=== PATIENT | female | born 1970 | race Hispanic/Latino ===

== ENCOUNTER 2018-09-04 17:51 | Inpatient (IN) | payer OTHER, BC ==
[~2018-09-04] VITALS: Ht 170.2 cm; Wt 101.8 kg
[2018-09-04 19:26] LABS: BASOPHILS % (AUTO) 1.3 % (0.0-5.0); EOSINOPHILS % (AUTO) 2.9 % (0.0-8.0); HEMATOCRIT 36.9 % (36-48); LYMPHOCYTES % (AUTO) 17.8 % (21.0-51.0); MEAN CORPUSCULAR HEMOGLOBIN 27.3 pg (27.0-33.0); MEAN CORPUSCULAR HGB CONC 33.8 g/dL (32.0-36.0); MEAN CORPUSCULAR VOLUME 80.9 fL (79-99); MONOCYTES % (AUTO) 5.6 % (3.0-13.0); NEUTROPHILS % (AUTO) 72.4 % (40.0-77.0); PLATELET COUNT (AUTO) 326 K/uL (130-400); RED BLOOD CELL COUNT(AUTO) 4.56 MIL/uL (4.00-5.50); RED CELL DISTRIBUTION WIDTH 13.5 % (11.0-15.5); WHITE BLOOD COUNT (AUTO) 14.2 K/uL (4.8-10.8)
[2018-09-04 19:28] LABS: APPEARANCE,URINE Clear (CLEAR); BILIRUBIN,URINE Negative (NEGATIVE); COLOR,URINE Yellow (YELLOW); GLUCOSE, URINE (UA) >=1000 mg/dL (NEGATIVE); KETONES,URINE Negative (NEGATIVE); LEUKOCYTE ESTERASE ,URINE Trace (NEGATIVE); NITRATE,URINE Negative (NEGATIVE); OCCULT BLOOD,URINE Trace (NEGATIVE); PH,URINE 5.5 (5.0-8.0); PROTEIN,URINE POS 2+ mg/dL (NEGATIVE); UROBILINOGEN,URINE 0.2 mg/dL (0.2-1.0)
[2018-09-04 19:30] LABS: HCG,QUAL RESULT NEGATIVE (NEGATIVE)
[2018-09-04 19:36] LABS: CREATININE 2.4 mg/dL (0.5-1.5); POTASSIUM 3.7 mmol/L (3.5-5.1)
[2018-09-04 19:38] LABS: INR 0.96 (0.85-1.15); PARTIAL THROMBOPLASTIN TIME 32.2 SEC (26.3-35.5); PROTHROMBIN TIME 10.1 SEC (9.6-11.6)
[2018-09-04] MEDS ORDERED: ENOXAPARIN SODIUM 40 MG/0.4 ML SYRINGE SQ ONE (19:38)
[2018-09-04] MEDS ORDERED: ENOXAPARIN SODIUM 60 MG/0.6 ML SQ ONE (19:38)
[2018-09-04 19:41] LABS: ALBUMIN 3.2 g/dL (3.5-5.0); BILIRUBIN,TOTAL 0.3 mg/dL (0.2-1.0); TOTAL PROTEIN, SERUM 8.2 g/dL (6.0-8.3)
[2018-09-04 19:54] LABS: RBC,URINE None Seen /HPF (0-1)
[2018-09-04 19:56] LABS: BACTERIA,URINE Rare /HPF (None Seen); SQUAMOUS EPITHELIAL CELL,UR Rare /HPF (0-2)
[2018-09-04] MEDS ORDERED: ACETAMINOPHEN 325 MG TAB PO PRN ×2 (22:00)
[2018-09-04] MEDS ORDERED: ONDANSETRON HCL 4 MG/2 ML VIAL IV PRN (22:00)
[2018-09-04] MEDS ORDERED: MORPHINE SULFATE 2 MG/ML 1ML SYG IV PRN (22:00)
[2018-09-04] MEDS ORDERED: HYDRALAZINE HCL 20 MG/ML VIAL IV PRN (22:00)
[2018-09-04] MEDS ORDERED: CEFTRIAXONE SODIUM 1 GM ONE (22:36)
[2018-09-04 23:10] VITALS: BP 146/78
[2018-09-04] MEDS ORDERED: SAXA5TAB PO (23:37)
[2018-09-04] MEDS ORDERED: INSLAN SQ (23:37)
[2018-09-04] MEDS ORDERED: ATEN50TA PO (23:37)
[2018-09-05] MEDS ORDERED: DEXTROSE 50%-WATER 50 ML DISP.SYRIN IV PRN (01:00)
[2018-09-05] MEDS ORDERED: GLUCAGON 1MG KIT 1 MG ML IM PRN (01:00)
[2018-09-05 03:50] VITALS: BP 128/87
[2018-09-05] MEDS ORDERED: INSULIN HUMULIN R 100 UNIT/ML 3ML SQ SCH (07:30)
[2018-09-05 07:42] VITALS: BP 134/78
[2018-09-05] MEDS ORDERED: WARFARIN SODIUM 7.5 MG TAB PO SCH (08:00)
[2018-09-05] MEDS ORDERED: ENOXAPARIN SODIUM 40 MG/0.4 ML SYRINGE SQ SCH (09:00)
[2018-09-05] MEDS: ENOXAPARIN SODIUM 100 MG/1 ML SQ SCH ×2 (09:22→21:38)
[2018-09-05] MEDS: FAMOTIDINE/PF 20 MG/2 ML VIAL IV SCH (09:22)
[2018-09-05] MEDS: METOPROLOL TARTRATE 25 MG TAB PO SCH ×2 (09:23→21:31)
--- NOTE | 2018-09-05 11:00 | NUR ---
DR. COTTER STATED OK FOR PT TO GET UP AND SHOWER , BUT MAINLY BED REST
[2018-09-05] MEDS ORDERED: INSULIN LISPRO 100 UNIT/ML 3ML SQ SCH ×2 (11:30)
[2018-09-05 11:57] VITALS: BP 141/83
--- NOTE | 2018-09-05 12:32 | NUR ---
SPOKE WITH JUSTIN Miner, FEED MANAGEMENT ADVISOR AWARE OF CONSULT
[2018-09-05] MEDS ORDERED: INSULIN GLARGINE 100 UNITS/ML 10 ML VIAL SQ SCH ×2 (12:45→21:00)
--- NOTE | 2018-09-05 15:58 | NUR ---
DC PLAN VISITED WITH PATIENT. PATIENT LIVES WITH SPOUSE. INDEPENDENT ABLE TO PERFORM ADL'S. PATIENT HAS NO SERVICES. USES CRUTCHES. FEELS SAFE TO RETURN HOME. Addendum: 09/05/18 at 1559 by HI LOU RN CM Amended: Links added.
[2018-09-05 16:00] VITALS: BP 125/75
[2018-09-05] MEDS: WARFARIN SODIUM 5 MG TAB PO SCH (17:00)
[2018-09-05] MEDS: MORPHINE SULFATE 4 MG/1ML SYG IV PRN (18:30)
[2018-09-05 20:00] VITALS: BP 151/93
[2018-09-05] MEDS: CEFTRIAXONE SODIUM 1 GM IVP SCH (21:32)
[2018-09-05] MEDS: ATENOLOL 50 MG TABLET PO SCH (21:32)
[2018-09-05] MEDS: INSULIN GLARGINE 100 UNITS/ML 10 ML VIAL SQ SCH (22:29)
[2018-09-06] VITALS: BP 130/79
[2018-09-06 04:00] VITALS: BP 144/87
[2018-09-06 04:06] LABS: HEMATOCRIT 34.9 % (36-48); MEAN CORPUSCULAR HEMOGLOBIN 27.4 pg (27.0-33.0); MEAN CORPUSCULAR HGB CONC 33.5 g/dL (32.0-36.0); MEAN CORPUSCULAR VOLUME 81.9 fL (79-99); PLATELET COUNT (AUTO) 313 K/uL (130-400); RED BLOOD CELL COUNT(AUTO) 4.26 MIL/uL (4.00-5.50); RED CELL DISTRIBUTION WIDTH 13.7 % (11.0-15.5); WHITE BLOOD COUNT (AUTO) 9.6 K/uL (4.8-10.8)
[2018-09-06 04:13] LABS: HEMOGLOBIN A1C 12.3 % (4.0-6.0)
[2018-09-06 04:19] LABS: INR 1.1 (0.85-1.15); PARTIAL THROMBOPLASTIN TIME 41.4 SEC (26.3-35.5); PROTHROMBIN TIME 11.5 SEC (9.6-11.6)
[2018-09-06 04:23] LABS: B-TYPE NATRIURETIC PEPTIDE 19 pg/mL (0-100)
[2018-09-06] MEDS: INSULIN GLARGINE 100 UNITS/ML 10 ML VIAL SQ SCH ×3 (07:15→21:00)
[2018-09-06 08:00] VITALS: BP 136/77
[2018-09-06] MEDS: METOPROLOL TARTRATE 25 MG TAB PO SCH ×2 (09:05→19:51)
[2018-09-06] MEDS: FAMOTIDINE/PF 20 MG/2 ML VIAL IV SCH (09:05)
[2018-09-06] MEDS: ENOXAPARIN SODIUM 100 MG/1 ML SQ SCH ×2 (09:06→22:59)
[2018-09-06 11:31] VITALS: BP 141/78
--- NOTE | 2018-09-06 15:09 | NUR ---
COUMADIN DIET EDUCATION: Pt new to warfarin. Diet education provided by [facility]. Printed materials provided and reviewed on Warfarin and Vitamin K diet. A list of Vit K content food list provided. Pt with multiple questions all questions answered by [facility]. Addendum: 09/06/18 at [address] RD Amended: Links added.
--- NOTE | 2018-09-06 15:11 | NUR ---
DIABETES DIET EDUCATION: Pt with A1C of 12.3 diabetes diet education provided by [facility]. Printed materials provided and reviewed on Type II DM, portion control, carbohydrate counting, and nutrition label reading tips . Pt with no nutritional questions states she has been a diabetic for many years, has attended nutrition classes and knows her blood sugars have not been able to control d/t changes in medications by her MD. Addendum: 09/06/18 at [address] RD Amended: Links added.
--- NOTE | 2018-09-06 15:18 | NUR ---
Nutrition intervention: Nutrition notification for new to coumadin- diet education provided by [facility] Pt with elevated A1C 12.3, DM diet education provided by [facility]. Pt with elevated renal lab values, recommend diet modification to renal non dialysis. Pt reports allergies to pineapple, rice, corn and avocado when eaten in combination. Menu today had corn, pt did eat it. Pt states she knows how she can eat all meals. States allergies are not life threatening. Recommendations: Diet modification to renal non dialysis. Consult RD as nutrition concerns arise. Addendum: 09/06/18 at [address] RD Amended: Links added.
[2018-09-06] MEDS: WARFARIN SODIUM 5 MG TAB PO SCH (15:52)
[2018-09-06 16:00] VITALS: BP 150/77
[2018-09-06] MEDS: INSULIN HUMULIN R 100 UNIT/ML 3ML SQ SCH ×2 (16:55→20:48)
[2018-09-06] MEDS: CEFTRIAXONE SODIUM 1 GM IVP SCH (19:52)
[2018-09-06] MEDS: ATENOLOL 50 MG TABLET PO SCH (19:52)
[2018-09-06 20:00] VITALS: BP 144/85
[2018-09-06] MEDS: MORPHINE SULFATE 4 MG/1ML SYG IV PRN (23:03)
[2018-09-07] VITALS: BP 132/77
[2018-09-07 04:00] VITALS: BP 128/73
[2018-09-07] MEDS: INSULIN HUMULIN R 100 UNIT/ML 3ML SQ SCH ×2 (06:05→11:43)
[2018-09-07 06:27] LABS: INR 1.69 (0.85-1.15); PARTIAL THROMBOPLASTIN TIME 49.1 SEC (26.3-35.5); PROTHROMBIN TIME 17.6 SEC (9.6-11.6)
[2018-09-07] MEDS: INSULIN GLARGINE 100 UNITS/ML 10 ML VIAL SQ SCH (06:36)
[2018-09-07 08:00] VITALS: BP 126/76
[2018-09-07] MEDS: FAMOTIDINE/PF 20 MG/2 ML VIAL IV SCH (09:27)
[2018-09-07] MEDS: METOPROLOL TARTRATE 25 MG TAB PO SCH (09:27)
[2018-09-07] MEDS: ENOXAPARIN SODIUM 100 MG/1 ML SQ SCH (09:28)
--- NOTE | 2018-09-07 11:21 | NUR ---
ELIQUIS ALEENA spoke to pt regarding new prescription for Eliquis. CM obtained consent to send new script to [facility] pharmacy for insurance verification. ALEENA then faxed script. Spoke to Lina with [facility] pharmacy [place] and states medication covered with copay of $10. ALEENA then updated pt with above and states she can pay for script. CM updated nursing. Pt now pending d/c orders from .
[2018-09-07] MEDS ORDERED: APIXABAN 5 MG TABLET PO SCH (11:45)
[2018-09-07 12:00] VITALS: BP 149/75
--- NOTE | 2018-09-07 13:30 | NUR ---
INSTRUCTIONS DISCHARGE INSTRUCTIONS GIVEN TO PATIENT AND SPOUSE USING TEACH BACK. F/U APPOINTMENT WITH PMD WILL BE MADE BY PATIENT ON NEXT REGULAR BUSINESS DAY D/T THIS BEING SATURDAY. NO QUESTIONS OR CONCERNS VOICED. IV HAS BEEN REMOVED WITH TIP INTACT. DIRECT PRESSURE WAS APPLIED UNTIL BLEEDING WAS CONTROLLED THEN SITE WAS COVERED WITH GAUZE AND SECURED WITH A BAND-AID. NEW PRESCRIPTION WAS CALLED IN TO PATIENT'S PREFERRED PHARMACY.
[2018-09-07] MEDS ORDERED: INSULIN GLARGINE 100 UNITS/ML 10 ML VIAL SQ SCH (21:00)
== END 2018-09-07 13:50 | disposition home or self-care (01) | DRG 300 ==
LOC: EDH 17:51 → EDHIP 21:00 → 4CH 22:45
PROVIDERS: ADMIT Internal Medicine; ATTEND Internal Medicine
DX: I82.402 Acute embolism and thrombosis of unspecified deep veins of left lower extremity (principal); Q61.3 Polycystic kidney, unspecified; N39.0 Urinary tract infection, site not specified; N18.4 Chronic kidney disease, stage 4 (severe); I12.9 Hypertensive chronic kidney disease with stage 1 through stage 4 chronic kidney disease, or unspecified chronic kidney disease; E11.65 Type 2 diabetes mellitus with hyperglycemia; E66.01 Morbid (severe) obesity due to excess calories; Z79.4 Long term (current) use of insulin; Z68.38 Body mass index [BMI] 38.0-38.9, adult; Z90.49 Acquired absence of other specified parts of digestive tract; Z88.8 Allergy status to other drugs, medicaments and biological substances
CPT/HCPCS: 36415; 71045; 73590; 78580; 80053; 81001; 81025; 82948; 83036; 83880; 85025; 85027; 85378; 85610; 85730; 93005; 93971; A9540; G0378; J0696; J1650; J1815; J2270; J3490

== ENCOUNTER → 2023-04-18 | Outpatient (CLI) | payer BC ==
[~2023-04-18] VITALS: Ht 168.9 cm; Wt 93.1 kg
[~2023-04-18] MED LIST: ATEN50TA PO; CALC0.253 PO; FERR210T PO; INSLAN SQ; INSU100I66 SQ; LOSA50TA64 PO; SODI650T PO
[2023-04-18 14:48] VITALS: BP 176/98; PULSE 67; RESP 18
[2023-04-18 14:50] LABS: BASOPHILS # (AUTO) 0.08 K/uL (0.00-0.20); BASOPHILS % (AUTO) 0.5 % (0.0-5.0); HEMATOCRIT 27.3 % (36-48); IMMATURE GRANULOCYTE ABSOLUTE 0.07 K/uL (0-1); LYMPHOCYTES # (AUTO) 1.5 K/uL (1.0-4.8); LYMPHOCYTES % (AUTO) 9.9 % (21.0-51.0); MEAN CORPUSCULAR HEMOGLOBIN 28.6 pg (27.0-33.0); MEAN CORPUSCULAR HGB CONC 32.6 g/dL (32.0-36.0); MEAN CORPUSCULAR VOLUME 87.8 fL (79-99); MONOCYTES # (AUTO) 0.9 K/uL (0.1-1.0); MONOCYTES % (AUTO) 6.1 % (3.0-13.0); NEUTROPHILS # (AUTO) 12.3 K/uL (1.8-7.7); PLATELET COUNT (AUTO) 315 K/uL (130-400); RED BLOOD CELL COUNT(AUTO) 3.11 MIL/uL (4.00-5.50); RED CELL DISTRIBUTION WIDTH 12.5 % (11.0-15.5); WHITE BLOOD COUNT (AUTO) 15.2 K/uL (4.8-10.8)
[2023-04-18 15:01] LABS: INR 0.95 (0.85-1.15); PROTHROMBIN TIME 11.1 SEC (9.6-11.6)
[2023-04-18 15:02] LABS: PARTIAL THROMBOPLASTIN TIME 32.6 SEC (26.3-35.5)
[2023-04-18 15:08] LABS: CREATININE 10.7 mg/dL (0.5-1.5)
== END | disposition home or self-care (01) ==
LOC: DAH 10:00 → EDSTATUS 04-19 12:00
PROVIDERS: ATTEND Surgery
DX: N18.6 End stage renal disease (principal)
CPT/HCPCS: 80048; 85025; 85610; 85730; 36415; A6260

== ENCOUNTER → 2023-07-18 | Outpatient (CLI) | payer BC ==
[~2023-07-18] MED LIST changes: -INSLAN SQ
== END | disposition home or self-care (01) ==
LOC: RAH 07:57
PROVIDERS: ATTEND Otolaryngology
DX: J38.00 Paralysis of vocal cords and larynx, unspecified (principal)
CPT/HCPCS: 70490